=== PATIENT | male | born 1990 | race Two or more races ===

== ENCOUNTER 2018-02-12 04:30 | Emergency (ER) | payer BC ==
[~2018-02-12] VITALS: Ht 167.6 cm; Wt 65.0 kg
[2018-02-12 04:47] VITALS: BP 120/83
== END 2018-02-12 09:00 | disposition left against medical advice (07) ==
LOC: ER 08:59
DX: Z53.21 Procedure and treatment not carried out due to patient leaving prior to being seen by health care provider (principal)